=== PATIENT | male | born 1980 | race Caucasian/White ===

== ENCOUNTER 2020-01-07 19:21 | Emergency (ER) | payer BC, SELFPAY ==
--- NOTE | 2020-01-07 19:26 | US_ITS ---
WS: [id number] Scrotal and testicular ultrasound, 01/07/2020 Clinical Data: testicle pain Comparison: None. Findings: The right testes measures 4.2 cm x 2.6 cm x 2.7 cm. The left testes measures 3.5 cm x 2.5 cm x 2.4 cm. There is normal bilateral blood flow with no evidence of orchitis or torsion. No masses or abnormal c alcifications are noted. Both epididymides show increased flow. US/US scrotum [id number] Impression: Bilateral epididymitis.
[2020-01-07 19:30] VITALS: BP 131/72; PULSE 89; RESP 14; TEMP 36.9; O2SAT 97; BMI 34.8
--- NOTE | 2020-01-07 19:55 | ED_ITS ---
HPI - Male Genitourinary General: Chief complaint: Urogenital-Male Stated complaint: testicle pain Time Seen by Provider: 01/07/20 19:40 History of Present Illness: HPI Narrative: Patient is a 39-year-old male who comes to the ED with right testicle pain. Patient said that he noticed the pain and swelling today. He says that about 3 days ago he started having some lower back pain, but other than that he denies any other symptoms. Right testicle pain is rated at a 4 out of 10 currently. He has taken an ibuprofen before coming to the ED and states that he does not want any other pain meds while he is here. Denies any penile discharge/ bleeding, trauma, penile lesions, dysuria, hematuria, erectile dysfunction, fever, chills, nausea/vomiting, abdominal pain. Associated symptoms: Deny dysuria, hematuria, nausea or vomiting Review of Systems Const: Denies: fever(s), chills or fatigue Eyes: Denies: change in vision or eye discomfort ENMT: Denies: throat pain, odynophagia, nasal discharge or nasal congestion Card: Denies: chest pain, palpitations, edema, swelling of feet/ankles, dyspnea on exertion or orthopnea Resp: Denies: dyspnea, productive cough or non-productive cough GI: Denies: abdominal pain, nausea, vomiting, diarrhea, constipation or hematochezia : Reports: testicular pain (right testicle) and scrotal swelling; Denies: flank pain, difficulty urinating, dysuria, hematuria, genital pain, genital lesions or penile discharge Musc: Reports: back pain (lower back); Denies: neck pain or extremity swelling Skin/Breast: Denies: rash or new lesions Neuro: Denies: headache(s), numbness in extremities or weakness in extremities [facility] ED PFSH: Social History Smoking and tobacco status: current every day smoker Physical Exam Const: COMMON NORMALS: no acute distress, patient oriented x3 and alert GENERAL APPEARANCE: cooperative; not comfortable (Patient appears uncomfortable from right testicular pain. Any movement seems to bother him.) NUTRITIONAL APPEARANCE: overweight HENMT: COMMON NORMALS: normocephalic HEAD & SCALP: normocephalic MOUTH: Normal oral and palatal mucosa present THROAT: posterior oropharynx normal and uvula midline Neck/C-Spine: COMMON NORMALS: supple GENERAL: Yes normal visual inspection Resp: COMMON NORMALS: normal respiratory effort, No retractions, No use of accessory muscles and clear to auscultation bilaterally AUSCULTATION: clear to auscultation bilaterally Cardio: COMMON NORMALS: regular rate, regular rhythm, S1 normal heart sound present, S2 normal heart sound present, No gallops present (Cardio), No clicks present (Cardio), No murmurs present (Cardio) and Peripheral pulses 2+ throughout RATE: regular rate RHYTHM: regular rhythm HEART SOUNDS: S1 normal heart sound present and S2 normal heart sound present PERIPHERAL PULSES: Peripheral pulses 2+ throughout GI: COMMON NORMALS: Normal to inspection, nondistended, normoactive bowel sounds present, Soft to palpation, non-tender and no masses PALPATION: Yes Soft to palpation : COMMON NORMALS: Yes no CVA tenderness BLADDER/KIDNEY EXAM: Yes no CVA t enderness PENIS: normal penis SCROTUM: Yes testes descended bilaterally, Yes Scrotal tenderness present (right), Yes erythematous Scrotal erythema laterality: right and Yes scrotal swelling Scrotal swelling laterality: right TESTES: Yes Enlarged testicle(s) present (right) and Yes testicular tenderness Testicular tenderness laterality: right Back/Pelvis: COMMON NORMALS: no CVA tenderness LUMBAR SPINE/LOWER BACK: Yes paraspinal muscle tenderness Lumbar paraspinal muscle tenderness: bilateral Bilateral lumbar paraspinal muscle tenderness: L3 and L4 Extremity: COMMON NORMALS: normal to inspection Neuro: COMMON NORMALS: patient oriented x3 and moves all extremities SENSORIUM/ORIENTATION: Yes alert Skin: COMMON NORMALS: no rashes or lesions noted GENERAL SKIN EXAM: no rashes or lesions noted and dry skin Course Vital Signs: Vital signs: Vital Signs Temperature 98.4 F 01/07/20 19:30 Pulse Rate 89 01/07/20 19:30 Respiratory Rate 14 01/07/20 19:30 Blood Pressure 131/72 01/07/20 19:30 Pulse Oximetry 97 01/07/20 19:30 MDM - Male MDM Narrative: Medical decision making narrative: Patient is a 39-year-old male comes to the ED with right testicle pain. Exam showed a swollen, tender and erythematous right testicle. Ultrasound of the scrotum was performed and it showed epididymitis. Patient was given a dose of IM Rocephin and levofloxacin p.o. while here in the ED. He was sent home with a prescription for levofloxacin and I placed an order with case management for patient to be referred to urology. Return to ED precautions given. Patient understood and agreed with plan. Imaging Data: US: Attestation: I personally reviewed and interpreted this imaging study as follows: Radiologist's impression: Testicular ultrasound?prelim report-epididymitis Discharge Plan Discharge Patient Disposition: Home Clinical Impression: Epididymitis Condition: Stable Prescriptions: New levofloxacin 500 mg tablet 500 mg PO DAILY 10 Days Qty: 10 RF: 0 No Action Tylenol 325 mg Tablet 325 mg PO QID PRN (Reason: pain/fever) RF: 0 ibuprofen 200 mg Tablet 200 - 800 mg PO DAILY PRN (Reason: pain/fever) RF: 0 Discharge Orders: Discharge Order (Routine); Ordered 01/07/20 Ordered By: Mesfin Hamilton Referrals: Lucina Parikh FNP [Primary Care Provider] - Discharge Diet: Regular Discharge Activity: Increase activity as tolerated Patient Instructions: Epididymitis (ED) Activity Restrictions/Additional Instructions: Follow-up with medical provider as directed. Case management should be contacting you in the next several days to set up an appointment with urologist. Take medications as prescribed. Take [id number] Tylenol or ibuprofen for pain. Return to the ER or your medical provider if condition worsens. Please read and understand discharge instructions. If any questions, please ask. Discharge Date/Time: 01/07/20 20:59 Coding Level of Care Code ED Bottle And Glass Inspector for Noel Fwsonu Exam Comprehensive
[2020-01-07] MEDS: levoFLOXacin 500 mg Tablet PO (20:50)
[2020-01-07] MEDS: cefTRIAXone 1,000 mg SDV 250 MG IM (20:50)
--- NOTE | 2020-01-08 10:56 | DCPLANNER ---
field insurance sales manager had message to schedule a follow up appointment for patient with Dr. Westbrook. field insurance sales manager called the office of Dr. Westbrook, spoke with Armida, gave clinic patients information. field insurance sales manager was told that patients information would be printed and reviewed. Clinic will call patient with appointment information.
--- NOTE | 2020-01-12 14:21 | DCPLANNER ---
Patient has a follow up appointment scheduled for Saturday, January 22, [address] at 8:[address] Westbrook. Clinic will call patient with appointment information.
--- NOTE | 2020-01-28 12:43 | DCPLANNER ---
Patient had an appointment scheduled for 01.22.20 - patient cancelled appointment - did not want to reschedule at this time.
== END 2020-01-07 20:59 | disposition home or self-care (01) ==
PROVIDERS: Emergency Provider Physician Assistant; PCP Nurse Practitioner Family
DX: N45.1 Epididymitis (principal); F17.210 Nicotine dependence, cigarettes, uncomplicated
CPT/HCPCS: 12345; 76870; 96372; 99282; 99283; J0696

== ENCOUNTER 2021-01-09 09:52 | Outpatient (CLI) | payer BC, SELFPAY ==
--- NOTE | 2021-01-09 09:59 | XR_ITS ---
WS: [id number] PROCEDURE: XR chest 2V* [id number] CLINICAL INFORMATION: SHORTNESS OF BREATH, TOBACCO USE, PANIC DISORDER COMPARISON: September 10, 2016 FINDINGS: Heart: Normal cardiac silhouette. Lungs: Lungs are clear. No consolidation or pleural fluid. No acute pulmonary infiltrates. Bones: Normal visualized bony structures. XR/XR chest 2V* [id number] IMPRESSION: Normal chest
== END 2021-01-09 09:53 | disposition home or self-care (01) ==
PROVIDERS: PCP Nurse Practitioner Family; Visit Provider Nurse Practitioner Family
DX: F41.0 Panic disorder [episodic paroxysmal anxiety] (principal); Z72.0 Tobacco use; R06.02 Shortness of breath
CPT/HCPCS: 71046

== ENCOUNTER 2021-01-09 11:00 | Outpatient (CLI) | payer BC, SELFPAY | END 2021-01-09 11:01 | disposition home or self-care (01) | LOC: SLEEP 01-10 16:34 | PROVIDERS: PCP Nurse Practitioner Family; Visit Provider Nurse Practitioner Family | DX: F41.0 Panic disorder [episodic paroxysmal anxiety] (principal); Z72.0 Tobacco use; R06.02 Shortness of breath; Z68.37 Body mass index [BMI] 37.0-37.9, adult | CPT/HCPCS: 94762 ==

== ENCOUNTER 2021-03-06 08:39 | Observation (INO) | payer BC, SELFPAY ==
[2021-03-06] VITALS (7 sets, daily range): BP systolic 107–131; BP diastolic 61–81; PULSE 66–77; RESP 16–20; TEMP 36.3–36.7; O2SAT 95–99; BMI 35.2
--- NOTE | 2021-03-06 08:42 | XR_ITS ---
WS: [id number] PORTABLE CHEST HISTORY: chest pain COMPARISON: 01/09/2021 Lungs are clear and well expanded. No pleural effusion or pneumothorax. Cardiac size: Normal. Mediastinum/Aorta: Normal mediastinum. No osseous abnormality seen. XR/XR chest 1V portable [id number] IMPRESSION: Unremarkable portable chest.
--- NOTE | 2021-03-06 08:42 | ECG_ITS ---
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 Measurements Intervals [place] Rate: 75 P: 53 LA: 164 QRS: 68 QRSD: 92 T: 46 QT: 365 QTc: 409 Interpretive Statements SINUS RHYTHM No previous ECG available for comparison Electronically Signed On 03-06-2021 23:43:04 CDT by Martín Perez M.D. [id number]
[2021-03-06] MEDS: aspirin 81 mg Chew Tablet 324 MG PO (09:13)
[2021-03-06 09:17] LABS: Basophils # 0.1 10^3/uL (0.0-0.1); Basophils % 0.4 %; Eosinophils # 0.1 10^3/uL (0.0-0.8); Eosinophils % 0.4 %; Hematocrit 45.3 % (42.0-52.0); Hemoglobin 14.8 g/dL (11.7-16.6); Lymphocytes # 2.8 10^3/uL (0.8-4.8); Lymphocytes % 24.7 %; Mean Corpuscular HGB Conc 32.7 g/dL (30.0-36.0); Mean Corpuscular Hemoglobin 28.5 pg (28.0-34.0); Mean Corpuscular Volume 87.1 fl (80-94); Mean Platelet Volume 9.4 fL (7.4-10.4); Monocytes # 0.8 10^3/uL (0.2-0.9); Monocytes % 6.7 %; Neutrophils # 7.43 10^3/uL (1.8-7.7); Nucleated Red Blood Cells % 0 %; Platelet Count 383 10^3/cmm (130-400); Red Cell Distribution Width 13.2 % (12.1-15.1); White Blood Count 11.1 10^3/uL (4.0-10.0)
[2021-03-06 09:41] LABS: Alanine Aminotransferase 18 U/L (0-41); Albumin Level 4.3 g/dL (3.5-5.2); Alkaline Phosphatase 82 IU/L (40-130); Anion Gap 16.2 (5-19); Aspartate Amino Transferase 17 U/L (0-40); Blood Urea Nitrogen 9 mg/dL (6-20); Calcium 9.4 mg/dL (8.5-10.5); Carbon Dioxide 25 mmol/L (22-29); Chloride 104 mmol/L (98-107); Globulin 2.6 g/dL (1.3-4.6); Glomerular Filtration Rate 81.9 mL/min (90-130); Glucose 103 mg/dL (65-115); Osmolality Calculated 291 mOsm/kg (285-295); Potassium 4.2 mmol/L (3.5-5.1); Sodium 141 mmol/L (136-145); Total Bilirubin 0.3 mg/dL (0.15-1.2); Total Protein 6.9 g/dL (6.6-8.7); Troponin(5th) Baseline 7 ng/L (0-15)
--- NOTE | 2021-03-06 09:45 | PC.NURSE ---
Pt is on awake overnight monitor
--- NOTE | 2021-03-06 10:12 | ED_ITS ---
HPI - Syncope General: Chief Complaint: Syncope Stated Complaint: syncope last night Time Seen by Provider: 03/06/21 08:55 History of Present Illness: HPI narrative: 40-year-old male presents emergency room with complaint of syncopal episode. Patient was at home in bed around 230 this morning seem to be lightheaded and dizzy he sat up and then had a witnessed syncopal episode. He recently had been being evaluated for near syncopal episodes and had a few bradycardic episodes down into the 30s on a Holter monitor. He had follow-up with cardiology for that still pending. He is not currently on any antihypertensives or negative ionotropes. He had a little bit of chest discomfort but he states is not any different than what he usually has. He does smoke and he is a slight cough. Denies any fever sweats chills he got very nauseous and diaphoretic when this happened this morning immediately afterwards but that has resolved now. MD complaint: loss of consciousness Onset (ago): minute(s) Description of event: post-event confusion Prodromal symptoms: lightheaded and palpitations Witnessed: Yes - by Bystander Injuries sustained associated with event: none Associated symptoms: Reports chest pain; Deny abdominal pain, fever(s), headache(s), lightheadedness, nausea, short of breath, vertigo or weakness Treatments prior to arrival: none Review of Systems Const: Denies: fever(s) ENMT: Denies: throat pain, ear or mastoid pain, nasal discharge or nasal congestion Card: Reports: chest pain; Denies: lightheadedness Resp: Denies: dyspnea, productive cough or non-productive cough GI: Denies: abdominal pain or nausea : Denies: flank pain, dysuria, urinary frequency or urinary urgency Skin/Breast: Denies: rash or pruritus Neuro: Denies: headache(s) or vertigo PFS ED PFSH: Social History (Updated 10/10/20 @ 12:15 by Josep Roldan LPN) Smoking and tobacco status: current every day smoker cigarettes Quit status (tobacco): not considering quitting Second hand smoke exposure: No Alcohol intake: never Desire information about alcohol rehabilitation?: No Desire information about substance/drug rehabilitation?: No Physical Exam Const: COMMON NORMALS: no acute distress GENERAL APPEARANCE: cooperative and comfortable ORIENTATION/CONSCIOUSNESS: Yes awake, Yes oriented to person, Yes oriented to place and Yes oriented to time HENMT: COMMON NORMALS: normocephalic, atraumatic and hearing grossly normal bilaterally HEAD & SCALP: normocephalic and atraumatic Neck/C-Spine: COMMON NORMALS: no JVD Resp: COMMON NORMALS: normal respiratory effort, No retractions, No use of accessory muscles and clear to auscultation bilaterally AUSCULTATION: clear to auscultation bilaterally Cardio: COMMON NORMALS: no JVD, regular rate, regular rhythm and No murmurs present (Cardio) RATE: regular rate RHYTHM: regular rhythm GI: COMMON NORMALS: Soft to palpation and No hepatosplenomegaly present AUSCULTATION: Yes normoactive bowel sounds PALPATION: Yes Soft to palpation, No Tenderness to palpation present (GI), No Guarding due to palpation present (GI) and Yes No hepatosplenomegaly present Extremity: COMMON NORMALS: normal to inspection, capillary refill normal, no clubbing, cyanosis or edema, no calf tenderness and no pedal edema Neuro: SENSORIUM/ORIENTATION: Yes oriented to person, Yes oriented to place and Yes oriented to time Skin: COMMON NORMALS: no rashes or lesions noted GENERAL SKIN EXAM: no rashes or lesions noted Course Vital Signs: Vital signs: Vital Signs Temperature 98.0 F 03/06/21 09:15 Pulse Rate 75 03/06/21 13:53 Respiratory Rate 20 H 03/06/21 13:53 Blood Pressure 111/61 03/06/21 13:53 Pulse Oximetry 95 03/06/21 13:53 MDM - Syncope MDM Narrative: Medical decision making narrative: Patient has syncopal episode that seems for the most part unprovoked he simply sat up in bed. He was diaphoretic and nauseous afterwards I do think given these events and the history of bradycardia into the 30s he should be admitted and further evaluated for a syncopal episode. Discussed with patient and his as well as the hospitalist orders are written. Lab Data: Labs: Lab Results 03/06/21 03/06/21 03/06/21 09:10 09:10 09:10 WBC 11.1 10^3/uL H 10 ^3/uL (4.0-10.0) RBC 5.20 10^6/uL 10^6 /uL (4.1-5.3) Hgb 14.8 g/dL g/dL (11.7-16.6) Hct 45.3 % % (42.0-52.0) MCV 87.1 fl fl (80-94) MCH 28.5 pg pg (28.0-34.0) MCHC 32.7 g/dL g/dL (30.0-36.0) RDW 13.2 % % (12.1-15.1) Plt Count 383 10^3/cmm 10^3 /cmm (130-400) MPV 9.4 fL fL (7.4-10.4) Neut % (Auto) 67.0 % % Lymph % (Auto) 24.7 % % [place] % (Auto) 6.7 % % Eos % (Auto) 0.4 % % Baso % (Auto) 0.4 % % Neut # (Auto) 7.43 10^3/uL 10^3 /uL (1.8-7.7) Lymph # (Auto) 2.8 10^3/uL 10^3/ uL (0.8-4.8) [place] # (Auto) 0.8 10^3/uL 10^3/ uL (0.2-0.9) Eos # (Auto) 0.1 10^3/uL 10^3/ uL (0.0-0.8) Baso # (Auto) 0.1 10^3/uL 10^3/ uL (0.0-0.1) Nucleated RBC % (a uto) 0 % % Nucleated RBCs # 0.0 /100WBC /100W BC Sodium 141 mmol/L mmol/L (136-145) Potassium 4.2 mmol/L mmol/L (3.5-5.1) Chloride 104 mmol/L mmol/L (98-107) Carbon Dioxide 25 mmol/L mmol/L (22-29) Anion Gap 16.2 (5-19) BUN 9 mg/dL mg/dL (6-20) Creatinine 1.0 mg/dL mg/dL (0.7-1.2) GFR Calculation 81.9 mL/min L mL/ min (90-130) Glucose 103 mg/dL mg/dL (65-115) Calculated Osmolal ity 291 mOsm/kg mOsm/ kg (285-295) Calcium 9.4 mg/dL mg/dL (8.5-10.5) Total Bilirubin 0.3 mg/dL mg/dL (0.15-1.2) AST 17 U/L U/L (0-40) ALT 18 U/L U/L (0-41) Alkaline Phosphata se 82 IU/L IU/L (40-130) Troponin T Baselin e 7 ng/L ng/L (0-15) Troponin T 120 Min mercedes Delta Troponin T Total Protein 6.9 g/dL g/dL (6.6-8.7) Albumin 4.3 g/dL g/dL (3.5-5.2) Globulin 2.6 g/dL g/dL (1.3-4.6) Urine Color Urine Appearance Urine pH Ur Specific Gravit y Urine Protein Urine Glucose (UA) Urine Ketones Urine Blood Urine Nitrate Urine Bilirubin Urine Urobilinogen Ur Leukocyte Carola ase Urine RBC Urine WBC Ur Squamous Epith Cells Amorphous Sediment Urine Bacteria 03/06/21 03/06/21 09:20 11:25 WBC RBC Hgb Hct MCV MCH MCHC RDW Plt Count MPV Neut % (Auto) Lymph % (Auto) [place] % (Auto) Eos % (Auto) Baso % (Auto) Neut # (Auto) Lymph # (Auto) Berrien # (Auto) Eos # (Auto) Baso # (Auto) Nucleated RBC % (a uto) Nucleated RBCs # Sodium Potassium Chloride Carbon Dioxide Anion Gap BUN Creatinine GFR Calculation Glucose Calculated Osmolal ity Calcium Total Bilirubin AST ALT Alkaline Phosphata se Troponin T Baselin e Troponin T 120 Min mercedes 7.06 ng/L ng/L (0-15) Delta Troponin T 0.06 ABS# ABS# (0-10) Total Protein Albumin Globulin Urine Color Straw (Yellow) Urine Appearance Clear (CLEAR) Urine pH 6.5 (5-7) Ur Specific Gravit y 1.000 L (1.005-1.030) Urine Protein Neg (Negative) Urine Glucose (UA) Norm (Normal) Urine Ketones Negative (Negative) Urine Blood Neg (Negative) Urine Nitrate Negative (Negative) Urine Bilirubin Neg (Negative) Urine Urobilinogen Norm mg/dL mg/dL (Negative) Ur Leukocyte Carola ase Negative (Negative) Urine RBC None /hpf /hpf (0-2) Urine WBC None /hpf /hpf (0-5) Ur Squamous Epith Cells None /hpf /hpf (0-5) Amorphous Sediment Not Reportable Urine Bacteria None /hpf /hpf (NONE) Discharge Plan Discharge Patient Disposition: Admitted As Inpatient Admit Provider: Violeta Subramanian Clinical Impression: Syncope, Bradycardia Coding Level of Care Code ED Assessment Technician for Chg Fwd Exam Comprehensive
[2021-03-06 10:26] LABS: Bilirubin Urine Neg (Negative); Blood Urine Neg (Negative); Glucose Urine UA Norm (Normal); Ketones Urine Negative (Negative); Leukocyte Esterase Urine Negative (Negative); Nitrate Urine Negative (Negative); Protein Urine Neg (Negative); Urine Appearance Clear (CLEAR); Urine Color Straw (Yellow); Urobilinogen Urine Norm (Negative); pH Urine 6.5 (5-7)
--- NOTE | 2021-03-06 10:42 | ECG_ITS ---
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 Measurements Intervals [place] Rate: 63 P: 56 AR: 161 QRS: 66 QRSD: 91 T: 54 QT: 396 QTc: 406 Interpretive Statements SINUS RHYTHM Compared to ECG 03/06/2021 09:16:16 No significant changes Electronically Signed On 03-06-2021 23:54:28 CDT by Martín Perez M.D. [id number]
--- NOTE | 2021-03-06 11:47 | PC.PHAR ---
PT STATES HE TAKES CARE OF HIS OWN MEDICATIONS-PT STATES HE ONLY HAS A ALBUTEROL INHALER
[2021-03-06 12:18] LABS: Troponin 5 2HR 7.06 ng/L (0-15); Troponin 5 2HR Delta 0.06 ABS# (0-10)
--- NOTE | 2021-03-06 13:25 | PM.HP ---
Providers/Chief Complaint Admitting Physician: Violeta Subramanian MD Primary Care Provider: CAROLEE Byers Chief Complaint: cp at 2am History of Present Illness Orville Mohamud Jr is a 40 year old male presented to ER with complaint of feeling lightheaded and dizzy and diaphoretic. He states when he woke up in the middle of the night he felt this way. He also has a history of chronic neck pain but at that time did have pain radiating to his neck and also had a headache. He said he had some nausea and sore a little bit. He also had a cramp in his right leg. He says he had a coughing spell and after the coughing spell all this happened so it could have been due to it but he is not sure. Also he states that last month he had a Holter monitor placed for 21 days by his primary care physician which did show some episodes of low heart rate. He was set up to see a sandblasting supervisor on March 16 but is unsure who that is. Patient is not on any medications at home. He is an active smoker 1 pack/day. Denies alcohol use. He does state that for anxiety he used to be on BuSpar but quit taking it a week ago since it was not helping at all. The only history he has is of asthma and uses albuterol as needed. His asthma spells do not wake him up at night and he maybe uses the inhaler once a week. When seen in ER by medicine hospitalist patient felt back to normal and was not having any symptoms at this time. He had no other complaints. It was decided to admit patient for observation to an echocardiogram and monitor on telemetry and see cardiology inpatient. Family history: Dad had [place] in his 50s, grandmother had a pacemaker, paternal aunt and uncle had heart problems and one of his paternal cousins at age 45 received a few stents. Review of Systems General: Reports: 10 or more systems reviewed and unremarkable except in HPI and below Medications/Allergies Home Medications Medication Instructions Recorded Confirmed Last Taken Type albuterol sulfate 2 puff INHALATION Q4H PRN 03/06/21 03/06/21 03/06/21 History Allergies Allergy/AdvReac Type Severity Reaction Status Date / Time No Known Allergies Allergy Verified 03/06/21 11:47 PFSH Acute PFSH: Social History (Updated 10/10/20 @ 12:15 by Josep Roldan LPN) Smoking and tobacco status: current every day smoker cigarettes Quit status (tobacco): not considering quitting Second hand smoke exposure: No Alcohol intake: never Desire information about alcohol rehabilitation?: No Desire information about substance/drug rehabilitation?: No Vitals/I&O/Wt Last Vital Signs Temp 98.0 F 03/06/21 09:15 Pulse 70 03/06/21 12:27 Resp 19 H 03/06/21 12:27 BP 118/77 03/06/21 12:27 Pulse Ox 97 03/06/21 12:27 Weight last 48 hrs Weight 111.13 kg Physical Exam Narrative: EXAM NARRATIVE: General: Alert oriented x3, patient seen sitting up in bed appearing comfortable. HEENT: Normocephalic, atraumatic, EOMI, breathing room air Cardio: Regular rate rhythm, normal S1-S2, no murmurs rubs gallops, Respiratory: Good bilateral air entry, no wheezes no rhonchi appreciated GI: Abdomen soft, nontender, nondistended, bowel sounds + Behavior: Appropriate and cooperative Extremities: no edema, no cyanosis Data : 03/06/21 09:10 03/06/21 09:10 A&P Assessment and plan (1) Bradycardia: Status: Acute (2) Lightheadedness: Status: Acute (3) Nicotine dependence: Status: Acute (4) Asthma: Status: Acute Additional A&P Information Patient did wear Holter monitor and does have a few episodes of bradycardia. There is also a sinus pause 3.5 seconds. Will monitor patient on telemetry overnight. We will check an echocardiogram. After reviewing echo and overnight telemetry will discuss case with cardiology and see if patient would qualify for pacemaker. Will not repeat lipid profile or hemoglobin A1c as he recently had this testing done in December. We called his primary from the ER and went over his lab results. Hemoglobin A1c was 5.6, triglycerides were a little bit elevated. HDL 50, creatinine 1.19. Everything else was unremarkable. Asthma?on ProAir at home not having any acute exacerbation. Nicotine dependence?patient smoked a pack per day. We will offer him a nicotine patch. Fluids: Not indicated Electrolyte: Replete as needed Nutrition: Cardiac diet Activity: As tolerated DVT prophylaxis: Lovenox. Attestations Medical Necessity Statement*: Anticipate less than 48 hours of hospital stay. Time Spent in Patient Care: 16 - 35 minutes Coding Level of Care Code Acute Geophysical Data Technician for g Fwd Diagnoses Bradycardia R00.1 Lightheadedness R42 Nicotine dependence F17.200 Asthma J45.909
--- NOTE | 2021-03-06 14:37 | USCV_ITS ---
Orville Mohamud Age: 40 Gender: M : 1980 Exam Date: 03/06/2021 15:07 Ordering Phys: Camden Modi DO Technologist: Annel Stanford [place]am [place] [facility] [place]: SYNCOPE BP: 132 / 102 HR: 66 Rhythm: Sinus Technical Quality: Technically difficult study MEASUREMENTS (Male / Female) Normal Values 2D ECHO LV Diastolic Diameter PLAX 4.3 cm 4.2 - 5.9 / 3.9 - 5.3 cm LV Systolic Diameter PLAX 3.2 cm IVS Diastolic Thickness 1.3 cm 0.6 - 1.0 / 0.6 - 0.9 cm IVS Systolic Thickness 1.8 cm LVPW Diastolic Thickness 1.3 cm 0.6 - 1.0 / 0.6 - 0.9 cm LVPW Systolic Thickness 1.8 cm RV Chamber Size 3.0 cm LVOT Diameter 2.0 cm LV Ejection Fraction 2D Teich 52.8 % LV Ejection Fraction MOD 2C 60.4 % LV Ejection Fraction 2C AL 60.7 % LA Diameter 3.2 cm LA Width 3.4 cm LA Height 4.0 cm RA Width 3.1 cm RA Height 4.1 cm Aorta at Sinotubular Diameter 2.5 cm DOPPLER AV Peak Velocity 170.0 cm/s LVOT Peak Velocity 112.0 cm/s AV Area Cont Eq vti 2.0 cm squared AV Area Cont Eq pk 2.1 cm squared MV Area PHT 3.7 cm squared Mitral E to A Ratio 1.1 MV E' Velocity 49.0 cm/s Mitral E to MV E' Ratio 5.7 Mitral E to LV E' Lateral Ratio 5.5 Mitral E to LV E' Septal Ratio 5.9 TR Peak Velocity 199.0 cm/s TR Peak Gradient 15.8 mmHg TV Peak E Velocity 59.0 cm/s Right Atrial Pressure 3.0 mmHg Pulmonary Artery Systolic Pressu 18.8 mmHg PV Peak Velocity 111.0 cm/s RV Acceleration Time 0.1 s RV Ejection Time 0.3 s RV AcT/ET 0.3 FINDINGS Left Ventricle Normal left ventricular size. LV systolic function is normal with EF of 55-60%.No regional wall motion abnormalities. Normal diastolic filling pattern. Right Ventricle The right ventricle is normal in size and function. Right Atrium The right atrium is normal in size. Left Atrium The left atrium is normal in size. Mitral Valve Grossly normal without significant stenosis or prolapse. There is trace mitral regurgitation. Aortic Valve Not well visualzied. No stenosis. There is no aortic regurgitation. Tricuspid Valve Structurally normal tricuspid valve without significant stenosis or regurgitation. Insufficient TR jet to calculate RVSP Pulmonic Valve Structurally normal pulmonic valve without significant stenosis. There is no pulmonic regurgitation. Pericardium Normal pericardium without effusion. Aorta Normal ascending aorta dimension. CONCLUSIONS LV systolic function is normal with EF of 55-60% Normal diastolic function Trace mitral regurgitation No comparison studies are available Xiang Howell MD (Electronically Signed) Final Date: 09 March 2021 12:01 S
--- NOTE | 2021-03-06 14:40 | PC.NURSE ---
From ER Pt is alert, persistent coughing strong and non productive cough. Denies any chest pain, or discomfort. at bedside. call light provided. oriented to staff.
--- NOTE | 2021-03-06 14:42 | ECG_ITS ---
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 Measurements Intervals [place] Rate: 67 P: 55 TX: 162 QRS: 74 QRSD: 92 T: 58 QT: 386 QTc: 408 Interpretive Statements SINUS RHYTHM Compared to ECG 03/06/2021 10:54:20 No significant changes Electronically Signed On 03-06-2021 23:55:46 CDT by Martín Perez M.D. [id number]
[2021-03-06 16:18] LABS: Troponin 5 6HR 9.16 ng/L (0-15); Troponin 5 6HR Delta 2.16 ng/L (0-12)
--- NOTE | 2021-03-06 18:38 | PC.NURSE ---
pt signed AMA Dr. Subramanian discuss to the pt the plan and treatment during his hospital stay. however pt wants to leave. Verified and Assess if pt understood the risks of collapse and sudded LOC, cardiac arrest once he leaves the hospital. pt stated he verbalizes understanding. is also at bedside. IV taken out. cath tip intact.
--- NOTE | 2021-03-06 18:52 | PM.EVENT ---
Event Note Event Note: Around the evening 6 PM, patient stated he would like to be discharged. I found out that his appointment with cardiology was actually with Dr. Howell on March 16. I called Dr. Howell over the phone and told him situation. Dr. Howell went over his Holter monitor results and identified sinus pauses up to 3.5 seconds. He stated that patient would qualify for pacemaker at this point. It was decided to not discharge the patient and if he would like to leave will have to be AGAINST MEDICAL ADVICE. I discussed this with the patient in detail. His was at bedside. Also discussed with patient's nurse. Patient understood the risks of leaving and it was made very clear that if he leaves AGAINST MEDICAL ADVICE the hospital and the doctors here were not reliable. He understood the risks and still wanted to leave. Appropriate paperwork was signed with nurse and patient left. He states he will follow up with the blood and plasma laboratory assistant on March 16 as scheduled.
--- NOTE | 2021-03-13 15:26 | PC.RESP ---
SMOKING CESSATION INFORMATION SENT TO PATIENT.
== END 2021-03-06 18:30 | disposition left against medical advice (07) ==
LOC: ER 12:28 → CSU 13:48
PROVIDERS: Physician Assistant; Admitting Provider Internal Medicine; Emergency Provider Family Medicine; PCP Nurse Practitioner Family; Visit Provider Internal Medicine
DX: R42 Dizziness and giddiness (principal); R00.1 Bradycardia, unspecified; J45.909 Unspecified asthma, uncomplicated; F17.200 Nicotine dependence, unspecified, uncomplicated; Z82.49 Family history of ischemic heart disease and other diseases of the circulatory system; Z53.29 Procedure and treatment not carried out because of patient's decision for other reasons
CPT/HCPCS: 36415; 71045; 80053; 81001; 84484; 85025; 93005; 93306; 99285; G0378

== ENCOUNTER 2021-04-10 12:00 | Outpatient (CLI) | payer BC, SELFPAY | END 2021-04-10 12:01 | disposition home or self-care (01) | LOC: SLEEP 04-11 09:48 | PROVIDERS: PCP Nurse Practitioner Family; Visit Provider Internal Medicine | DX: R06.83 Snoring (principal) | CPT/HCPCS: G0399 ==

== ENCOUNTER 2021-04-13 08:08 | Outpatient (CLI) | payer BC, SELFPAY ==
[2021-04-13 08:12] VITALS: BMI 35.2
--- NOTE | 2021-04-13 08:13 | ECG_ITS ---
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 Interpretive Statements NAME OF STUDY: LEXISCAN SESTAMIBI STRESS TEST INDICATION: [Chest Pain, ] Procedure: At the baseline, the blood pressure was 118/84 mmHg with a heart rate of 93 bpm. The electrocardiogram showed normal sinus rhythm, normal axis with normal ST and T's. The Lexiscan was infused over a period of 20 seconds. A total of 0.4 mg of Lexiscan was infused. The stress phase was continued for a total of 5 minutes. Heart rate was at the end of stress phase was 90 bpm and a blood pressure of 106/73 mmHg. The EKG at the peak infusion revealed since normal sinus rhythm with no significant ST-T wave changes. Sestamibi was injected 20 seconds after the Lexiscan infusion. Blood pressure at the end of recovery phase was 118/74 mmHg with a heart rate of 86 bpm. Conclusion: 1. Normal EKG response to Lexiscan infusion 2. No Lexiscan induced chest pain or cardiac arrhythmia. 3. Normal blood pressure and heart rate response. 4. Sestamibi/sestamibi perfusion scan pending; see separate report. Electronically Signed On 05-06-2021 11:59:28 [facility] HE[facility] SANITARIAN by Xiang Howell M.D. [id number]
--- NOTE | 2021-04-13 08:14 | NMCV_ITS ---
NM adalid perf SPECT r/s* [id number] Orville Mohamud Age: 40 Gender: M : 1980 Exam Date: 04/13/2021 08:14 Ordering Phys: Xiang Howell M.D ([email or web address]) Technologist: CHENCHO Aleman Exam Location: [facility] Indications: SHORTNESS OF BREATH STRESS TEST Please see separate stress test report in [facility] for full findings IMAGE PROTOCOL Rest/Stress 1 Lexiscan Day Radiopharmaceutical Dose (mCi) Administration Site Administered by Rest: Tc-99m 11.0 IV CHENCHO Clements Sestamibi Stress:Tc-99m 32.3 IV CHENCHO Aleman Sestamijordi Rest: 13-Apr-2021 60 Discovery 630 Stress: 13-Apr-2021 30 Discovery 630 0.4mg Lexiscan. Images obtained in supine and prone position. SPECT RESULTS Technical Quality: Excellent Raw Data Analysis: Normal Image Corrections: No attenuation or motion correction applied Summed Stress Score: 1 Summed Rest Score: 1 Summed Difference Score: 0 PERFUSION FINDINGS There is a small in size, fixed perfusion defect of the apical wall. This is consistent with prior small infarct with no evidence of ischemia. FUNCTIONAL RESULTS (calculated via Gated SPECT) Stress Image LV EF (%): 65 Stress EDV (mL):140 TID: 0.79 Stress ESV (mL):49 FUNCTIONAL FINDINGS: There is normal left ventricular systolic function. IMPRESSIONS 1. Abnormal myocardial perfusion imaging with small sized prior infarct noted in apical wall. No evidence of ischemia seen. 2. LV systolic function is normal. Xiang Howell MD (Electronically Signed) Final Date: 13 April 2021 14:05 S
--- NOTE | 2021-04-13 10:20 | PC.NURSE ---
Pt unable to complete exercise MIBI due to maximal Effort and sob, target HR not achieved. Dr. Howell notified by phone and received orders to switch to Lexiscan. Pt consented to switching to chemical test.
[2021-04-13] MEDS: regadenoson 0.4 Mg/5 ml Syringe IVP (10:30)
[2021-04-13 10:31] VITALS: BP 112/76; PULSE 76
== END 2021-04-13 08:09 | disposition home or self-care (01) ==
LOC: CDL 08:09
PROVIDERS: PCP Nurse Practitioner Family; Visit Provider Internal Medicine
DX: R07.9 Chest pain, unspecified (principal); R06.02 Shortness of breath
CPT/HCPCS: 78452; 93017; A9500; J2785

== ENCOUNTER 2021-04-21 15:08 | Outpatient (CLI) | payer BC, SELFPAY | END 2021-04-21 15:09 | disposition home or self-care (01) | PROVIDERS: PCP Nurse Practitioner Family; Visit Provider Internal Medicine Cardiovascular Disease | DX: I49.9 Cardiac arrhythmia, unspecified (principal); R55 Syncope and collapse | CPT/HCPCS: 36415; 84443 ==

== ENCOUNTER → 2022-09-12 15:33 | Outpatient (BNVA) | payer BC, SELFPAY | PROVIDERS: PCP Family Medicine; Visit Provider Family Medicine | DX: N52.9 Male erectile dysfunction, unspecified (principal); I49.9 Cardiac arrhythmia, unspecified | CPT/HCPCS: 80053; 80061; 82040; 84270; 84403; 85025 ==

== ENCOUNTER → 2024-03-31 14:42 | Outpatient (BNVA) | payer BC, SELFPAY | PROVIDERS: PCP Family Medicine; Visit Provider Family Medicine | DX: R00.1 Bradycardia, unspecified (principal) | CPT/HCPCS: 80053; 80061; 85025 ==